=== PATIENT | female | born 1995 | race Caucasian/White ===

== ENCOUNTER 2021-07-07 10:17 | Outpatient (REF) | payer MEDICAID, SELFPAY ==
--- NOTE | 2021-07-07 09:00 | PAPFT_PTH ---
PATIENT: Rayne Stacy LOC: [facility] U#:[id number] AGE/SX: 26/F ROOM: RE07/07/[address]: Erma Ayers NP : 1995 BED: DIS: 07/07/2021 SPEC #: [id number] RECD: 07/07/21 12:49 STATUS: RADHA REJennifer #: [id number] CLAIR: 07/07/21 09:[address]: Erma Ayers NP DEPT: [facility] Cytology RECD BY: Debi Escalante ENTERED: 07/07/21 12:50 SP TYPE: PAPFT RODOLFO DR: Unknown,Unknown Tissues: 1 - CX/ENDOCX FOR PAP SMEARS Procedures: PAP THIN PREP/[facility] Screening Comments: [id number]
== END 2021-07-07 10:18 | disposition home or self-care (01) ==
LOC: LBN 10:17
PROVIDERS: Visit Provider Nurse Practitioner Women's Health
DX: Z12.4 Encounter for screening for malignant neoplasm of cervix (principal)
CPT/HCPCS: 88142

== ENCOUNTER 2022-07-04 00:47 | Outpatient (CLI) | payer BC, SELFPAY ==
--- NOTE | 2022-07-04 | DI.MAMMO_ITS ---
Exam(s) US BREAST LT COMPLETE MG MAMMO DIAGNOSTIC UNI EXAM: US BREAST LT COMPLETE AND DIAGNOSTIC BILATERAL MAMMOGRAM CLINICAL HISTORY: L breast pain for 3 weeks,n64.4. TECHNIQUE: Complete ultrasound of the LEFT breast was performed including all 4 quadrants, the retro areolar region, and the ipsilateral axilla. During today's ultrasound a cutaneous Beakley spot was placed over finding at the 2 o'clock position left breast. There after the patient was sent to the mammogram suite for mammography. COMPARISON: None. This is a 27-year-old patient with left breast pain. FINDINGS: COMPLETE LEFT BREAST ULTRASOUND: At the 2 o'clock position there is a wider than taller solid lobulated nodule measuring approximately 10 x 6 mm with neutral through transmission, probably a fibroadenoma. There are no other focal ultr asound findings in all 4 quadrants. The breast tissue is noted to be dense. Scanning of the left axilla reveals a single small benign-appearing lymph node. DIAGNOSTIC BILATERAL MAMMOGRAM: Glandular breast tissue pattern is extremely dense, this significantly decreases sensitivity of the m ammogram for finding hidden underlying lesions. There are no obvious spiculated masses nor malignant-appearing microcalcification groups in either br east. There is no significant architectural distortion or skin thickening-traction. There are no obvious findings immediately subjacent to the Beakley spot which was placed at 2 o'clock position left breast. Is because the breast tissue on mammography is too dense visualize any underl zurdo nodules (which are able to be seen on ultrasound). IMPRESSION: 1. There is a 10 x 6 millimeter lobulated solid nodule the 2 o'clock position of the left breast seen on ultrasound (not able to be seen on mammography due to the extremely dense fibroglandular tissue p attern here). 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 Ultrasound-guided biopsy recommended. BI-RADS Category 4 - Suspicious Abnormality: Biopsy should be considered Breast Density - Category D - Extremely dense Breast density Category C or D implies that the patient has dense breast tissue. Dense breast tissue can make it harder to find cancer on a mammogram. Dense breast tissue is also associated with an incr eased risk of breast cancer. This information about the result of the mammogram report was provided to the patient to raise their awareness. Use this report when you speak with the patient about their risks for breast cancer, which includes their family history. At that time, you may recommend additional screening tests (Ultrasoun d or MRI) as these tests may add significant information. A negative radiographic report should not delay biopsy if a dominant or clinically suspicious mass is present. Up to ten percent of cancers are not identified on mammography. A negative report may reinforce clinical impression. Adenosis and dense breasts may obscure an underlying neoplasm. False positive reports average 6 to 10%. Patient will receive a letter notifying them of these results.
== END 2022-07-04 01:07 ==
LOC: DI 00:48
PROVIDERS: Visit Provider Nurse Practitioner Women's Health
DX: N64.4 Mastodynia (principal)
CPT/HCPCS: 76642; 77061; 77065; G0279

== ENCOUNTER 2025-01-01 15:31 | Outpatient (REF) | payer BC, SELFPAY ==
--- NOTE | 2025-01-01 15:00 | PAPFT_PTH ---
PATIENT: Rayne Stacy LOC: [facility] U#:[id number] AGE/SX: 29/F ROOM: RE01/01/[address]: Erma Ayers NP : 1995 BED: DIS: 01/01/2025 SPEC #: [id number] RECD: 01/01/25 18:38 STATUS: RADHA REJennifer #: [id number] CLAIR: 01/01/25 15:[address]: Erma Ayers NP DEPT: [facility] Cytology RECD BY: Debi Escalante ENTERED: 01/01/25 18:38 SP TYPE: PAPFT OTHR DR: Barb Mccallum Tissues: 1 - CX/ENDOCX FOR PAP SMEARS Procedures: PAP THIN PREP/[facility] Screening HPV DNA PROBE Comments: [id number] (HPV 16 & 18/45)
== END 2025-01-01 15:32 | disposition home or self-care (01) ==
LOC: LBN 15:31
PROVIDERS: PCP Nurse Practitioner Family; Visit Provider Nurse Practitioner Women's Health
DX: Z12.4 Encounter for screening for malignant neoplasm of cervix (principal)
CPT/HCPCS: 88142; 87624